=== PATIENT | male | born 1960 | race Caucasian/White ===

== ENCOUNTER 2023-09-25 21:16 | Emergency (ER) | payer BC, SELFPAY ==
--- NOTE | ~2023-09-25 | XR_ITS ---
EXAMINATION: XR TIBIA AND FIBULA, RIGHT CLINICAL INFORMATION: Pain COMPARISON: None available. TECHNIQUE: AP and lateral views of the right tibia and fibula were obtained. FINDINGS: The bones and soft tissues are normal. No fracture. No osseous lesions. XR/XR tibia fibula RT 2V IMPRESSION: Normal right tibia and fibula.
[2023-09-25 21:36] VITALS: BP 137/77; PULSE 69; RESP 16; TEMP 36.7; O2SAT 97; BMI 29.5
== END 2023-09-25 23:40 | disposition left against medical advice (07) ==
LOC: HO.ED 23:41
PROVIDERS: Emergency Provider Emergency Medicine; PCP Family Medicine
DX: M79.661 Pain in right lower leg (principal); Z53.21 Procedure and treatment not carried out due to patient leaving prior to being seen by health care provider
CPT/HCPCS: 73590; 99281; 99283